=== PATIENT | male | born 1995 | race African-American/Black ===

== ENCOUNTER 2018-11-11 11:15 | Emergency (ER) | payer SELFPAY ==
--- NOTE | 2018-11-11 14:25 | RAD ---
FRONTAL AND LATERAL IMAGING CHEST: Date: 11/11/18 COMPARISON: None. HISTORY: Productive cough, fever. FINDINGS: There is no pneumothorax, pleural fluid, focal consolidation, or alveolar edema. Heart and mediastina l contours are grossly unremarkable. IMPRESSION: No acute findings. POS: H
== END 2018-11-11 13:25 | disposition home or self-care (01) ==
LOC: SCSER 11:15
DX: J06.9 Acute upper respiratory infection, unspecified (principal); B34.9 Viral infection, unspecified; F17.210 Nicotine dependence, cigarettes, uncomplicated
CPT/HCPCS: 71046; 87804